=== PATIENT | female | born 1985 | race African-American/Black ===

== ENCOUNTER 2019-10-17 10:21 | Emergency (ER) | payer SELFPAY ==
[2019-10-17 10:25] VITALS: BP 126/78; PULSE 51; RESP 18; TEMP 36.8; O2SAT 98
--- NOTE | 2019-10-17 10:45 | ED.EAR ---
HPI - Ear Problem General Chief complaint: Ear Stated complaint: hearing loss after removal of bug Source: patient Mode of arrival: ambulatory Limitations: no limitations History of Present Illness HPI Narrative: Patient is a 34-year-old female who presents to emergency department for evaluation of bilateral ear pain that has been persistent for the last several months patient notes that the right ear is now closed up over the last week patient denies putting anything in the ear denies other URI symptoms or sick contacts patient is traveling through town Related Data Allergies Allergy/AdvReac Type Severity Reaction Status Date / Time Penicillins Allergy Anaphylactic Verified 10/17/19 10:21 Shock Review of Systems Review of Systems: All systems reviewed & are unremarkable except as noted in HPI and below PMFSH Social History Social History (Updated 10/17/19 @ 10:46 by Lowell Armstrong PA-C) Smoking status: Never smoker Substance use type: marijuana Exam Narrative: Exam Narrative: GENERAL: Well-appearing, well-nourished, and in no acute distress. HEAD: Normocephalic, atraumatic. EYES: PERRLA and EOMI. ENT: Nares clear, no rhinorrhea or epistaxis. Mucous membranes moist. Oropharynx without tonsillar hypertrophy exudate or other lesions. Patient with closed external canal on the right no erythema or drainage patient with open patent canal on the left with erythematous TM NECK: Supple. No adenopathy or masses. CHEST: Clear to auscultation. No respiratory distress. No wheezes rales or rhonchi HEART: Regular rate and rhythm. No murmur heard. SKIN: Warm, dry, no rash. NEURO: No focal deficits. Alert and oriented x3. PSYCH: Normal mood and affect. Course Course Emergency Course: Patient in the room in no distress will be given medications for her ear infection ear wick was placed in the closed canal patient will follow with ENT and was given reasons to return Vital Signs Vital signs: Vital Signs Temperature 98.3 F 10/17/19 10:25 Pulse Rate 51 L 10/17/19 10:25 Respiratory Rate 18 10/17/19 10:25 Blood Pressure 126/78 10/17/19 10:25 Pulse Oximetry 98 10/17/19 10:25 Temperature 98.3 F 10/17/19 10:25 Pulse Rate 51 L 10/17/19 10:25 Respiratory Rate 18 10/17/19 10:25 Blood Pressure 126/78 10/17/19 10:25 Pulse Oximetry 98 10/17/19 10:25 Procedures Other Procedure Procedure 1: Other Procedure: Earwick was placed in the right ear canal Medical Decision Making MDM Narrative Medical decision making narrative: Patient with ER infection in the room afebrile nontoxic-appearing no distress resting comfortably patient afebrile nontoxic-appearing felt appropriate for outpatient reevaluation. Vital Signs Vital Signs: Vital Signs Temperature 98.3 F 10/17/19 10:25 Pulse Rate 51 L 10/17/19 10:25 Respiratory Rate 18 10/17/19 10:25 Blood Pressure 126/78 10/17/19 10:25 Pulse Oximetry 98 10/17/19 10:25 Temperature 98.3 F 10/17/19 10:25 Pulse Rate 51 L 10/17/19 10:25 Respiratory Rate 18 10/17/19 10:25 Blood Pressure 126/78 10/17/19 10:25 Pulse Oximetry 98 10/17/19 10:25 Discharge Plan Discharge Clinical Impression: Otitis externa, Otitis media Patient Disposition: Home, Self-Care Condition: Stable Instructions: Antibiotic Form, Otitis Externa (DC) Additional Instructions: Follow-up with ear nose and throat and primary care in the next 3 to 5 days to set up for reevaluation. Go to ER for worsening pain, vision changes, nausea/vomiting, fever/chills, weakness, chest pain, shortness of breath, numbness/tingling, slurred speech, difficulty walking, change in mental status, any redness swelling around the ear or face etc. or any other concerns. Remove ear wick in the next 4 days Take any prescribed medications as directed. Prescriptions: New Ciprodex 0.3-0.1 % drops,suspension 4 drop RIGHTEAR Q12H 10 Days RF: 0
--- NOTE | 2019-10-17 11:14 | PC.NURSE ---
Patient refusing to leave ED at this time, Patient reports I have been here for 30 min and this is not efficiency, this is stupid. I want to see someone else and I want something to eat. EDP and professional services consultant spoke with patient about discharge and follow up care instructions, patient given soda and crackers.
--- NOTE | 2019-10-17 11:26 | PC.NURSE ---
Patient yelling and cussing at staff and other patients at this time, ED security called and at bedside to escort patient off property.
--- NOTE | 2019-10-17 11:32 | PC.NURSE ---
Patient walked to waiting room with ED security at this time.
== END 2019-10-17 11:31 | disposition home or self-care (01) ==
PROVIDERS: Emergency Provider Emergency Medicine
DX: H60.90 Unspecified otitis externa, unspecified ear (principal); H66.90 Otitis media, unspecified, unspecified ear
CPT/HCPCS: 99283